=== PATIENT | male | born 1975 | race Caucasian/White ===

== ENCOUNTER 2021-07-12 11:28 | Emergency (ER) | payer MEDICAID, OTHER ==
[~2021-07-12] VITALS: Ht 175 cm; Wt 63.0 kg
--- OUTSIDE RECORDS SUMMARY | 2021-07-12 11:35 | XMS REPORT | Clinical Summary ---
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 If you d o not see the information that you expected, contact Release of Information in [facility] [place] Information Management department at [phone] for further assistan ce in locating additional records.[facility] Allergies Comments Active Allergy Reactions Severity Noted Date Penicillins FEVER Medium 12/03/2020 Medications End Date Status Medication Sig Dispensed Refills Start Date Active HYDROcodone/acetaminophen Take 1 tablet 0 (NORCO) 7.5/325 mg tablet by mouth every 6 hours as needed for Pain Active methIMAzole (TAPAZOLE) 5 Take 5 mg by 0 mg tablet mouth daily. Active Problems No known active problems Surgical History Surgery Date Site/Laterality Comments NASAL SURGERY 09/25/2001 - 09/24/2002 NECK SURGERY SHOULDER SURGERY Medical History Medical History Date Comments Lupus (HCC) Thyroid disease Family History Medical History Relation Name Comments Heart Disease Father Arthritis Mother Heart Disease Mother Relation Name Status Comments Father Mother Social History Date Tobacco Use Types Packs/Day Years Used Current Every Day Smoker Cigarettes 1 15 Smokeless Tobacco: Never Used Comments Alcohol Use Standard Drinks/Week Not Currently 0 (1 standard drink = 0.6 o z pure alcohol) Sex Assigned at Date Recorded Not on file Last Filed Vital Signs Reading Time Taken Comments Vital Sign 128/78 12/03/2020 8:27 AM [employer] Blood Pressure 64 12/03/2020 8:27 AM [employer] Pulse 36.6 C (97.8 F) 12/03/2020 8:27 AM [employer] Temperature 16 12/03/2020 8:27 AM [employer] Respiratory Rate 95% 12/03/2020 8:27 AM [employer] Oxygen Saturation - - Inhaled Oxygen Concentration 87.1 kg (192 lb) 12/03/2020 8:27 AM [employer] Weight 175.3 cm (5' 9") 12/03/2020 8:27 AM [employer] Height 28.35 12/03/2020 8:27 AM [employer] Body Mass Index Plan of Treatment Health Maintenance Due Date Last Done Comments HIV SCREENING 1992 DTAP/TDAP VACCINES (1 - 1995 Tdap) HEPATITIS C SCREENING 1995 PHYSICAL (COMPREHENSIVE) 1995 EXAM INFLUENZA VACCINE 04/25/2021 Results Not on filefrom Last 3 Months Insurance Type Payer Benefit Subscriber ID Effective Phone Address Plan / Dates Group Medicaid [facility] MEDICAID [facility] [id number] 2020[address] [phone] 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
--- NOTE | 2021-07-12 11:41 | ED EENT ---
History of Present Illness General Chief Complaint: Eye Problems Stated Complaint: L EYE RED Source: patient Exam Limitations: no limitations History of Present Illness Date Seen by Provider: Jul 12, 2021 Time Seen by Provider: 11:40 Initial Comments To ER with left eye redness and foreign body sensation sudden onset after his shower last night. He is remodeling his house. He thought he got an eyelash in his eye after his shower but he and his looked and could not see any foreign body. They irrigated the eye but into today he has persistent symptoms. Timing/Duration: abrupt Location: eye (L), other (irrigation) Associated Symptoms: denies symptoms Allergies and Home Medications Allergies Coded Allergies: Penicillins (Verified Allergy, Unknown, 07/12/21) Patient Home Medication List Home Medication List Reviewed: Yes Review of Systems Review of Systems Constitutional: see HPI Eyes: See HPI Ears: No Symptoms Reported Nose: no symptoms reported Mouth: no symptoms reported Throat: no symptoms reported Respiratory: no symptoms reported Cardiovascular: no symptoms reported Musculoskeletal: no symptoms reported Skin: no symptoms reported Physical Exam Vital Signs Vital Signs - First Documented Height, Weight, BMI Height: '" Weight: lbs. oz. kg; BMI Method: General Appearance: WD/WN, no apparent distress Eyes: left eye other (No foreign body seen. The symptom of foreign body sensation improved significantly after application of topical tetracaine. We then did some fluorescein and there was an area of dye uptake to the lateral third of the cornea consistent with an abrasion.); bilateral eye PERRL, bilateral eye EOMI Ears: bilateral ear auricle normal, bilateral ear canal normal, bilateral ear TM normal Neck: non-tender, full range of motion Respiratory: no respiratory distress, no accessory muscle use Neurologic/Psychiatric: alert, normal mood/affect, oriented x 3 Skin: normal color, warm/dry Progress/Results/Core Measures Results/Orders My Orders Orders - HAN PENA APRN Tetracaine 0.5% Ophth Violet Sdv (Tetracai (07/12/21 11:45) Fluorescein Strips (Bhzac-F-Uvmcvj) (07/12/21 11:45) Balanced Salt Irrigation Soln (Bss Irrig (07/12/21 11:45) Vital Signs/I&O 07/12/21 07/12/21 11:37 11:37 Temp 36.2 36.2 Pulse 60 60 Resp 18 18 B/P (MAP) 142/85 142/85 (104) Pulse Ox 97 O2 Delivery Room Air Room Air Departure Impression Primary Impression: Left corneal abrasion Disposition: 01 HOME, SELF-CARE Condition: Stable Departure-Patient Inst. Decision time for Depature: 11:41 Referrals: NO,LOCAL PHYSICIAN (PCP/Family) Primary Care Physician Patient Instructions: Corneal Abrasion (DC) Add. Discharge Instructions: The eyedrops as directed. Follow-up with your doctor within the next week for recheck return to ER for worsening. All discharge instructions reviewed with patient and/or family. Voiced understanding. Scripts Gentamicin Sulfate (Gentamicin Sulfate) 5 Ml Drops 2 DROPS OP Q4H for 3 Days, #1 DROPS Prov: HAN PENA APRN 07/12/21 HAN PENA APRN Jul 12, 2021 11:41
[2021-07-12] MEDS ORDERED: FLUORESCEIN (FLUOR-I-STRIPS) 1 MG STRP OU ONE (11:45)
[2021-07-12] MEDS ORDERED: BSS 15 ML IR ONE (11:45)
[2021-07-12] MEDS ORDERED: TETRACAINE 0.5% OPHTH SOLN 4 ML BTL (SINGLE DOSE ONLY) OU ONE (11:45)
[2021-07-12] MEDS ORDERED: GENT5DRO30 OP (11:52)
[2021-07-12 11:54] VITALS: BP 142/65
== END 2021-07-12 11:54 | disposition home or self-care (01) ==
LOC: ER 11:31
DX: S05.02XA Injury of conjunctiva and corneal abrasion without foreign body, left eye, initial encounter (principal); X58.XXXA Exposure to other specified factors, initial encounter
CPT/HCPCS: 99281

== ENCOUNTER 2021-10-24 19:17 | Emergency (ER) | payer MEDICAID ==
[~2021-10-24] VITALS: Ht 177.8 cm; Wt 72.6 kg
[~2021-10-24 19:17] MED LIST: GENT5DRO30 OP
[2021-10-24 19:23] VITALS: BP 125/77
--- NOTE | 2021-10-24 19:36 | ED General ---
General Chief Complaint: COVID19 Suspect/Confirmed Stated Complaint: FEVER,CHILLS,URENA,BODY ACHES Source of Information: Patient Exam Limitations: No Limitations (HAN PENA APRN) History of Present Illness Date Seen by Provider: Oct 24, 2021 Time Seen by Provider: 19:36 Initial Comments Sudden onset of fever chills headache body aches low back pain sore throat onset this morning no cough. Denies abdominal pain dysuria or bowel changes. Daughter had flu last week. Timing/Duration: 12 Hours Severity: Moderate Associated Systoms: Fever/Chills, Headaches, Loss of Appetite, Nausea/Vomiting, Weakness (HAN PENA APRN) Allergies and Home Medications Allergies Coded Allergies: Penicillins (Verified Allergy, Unknown, 07/12/21) Patient Home Medication List Home Medication List Reviewed: Yes (HAN PENA APRN) Gentamicin Sulfate (Gentamicin Sulfate) 5 Ml Drops, 2 DROPS OP Q4H Prescribed by: HAN PENA on 07/12/21 1152 Review of Systems Review of Systems Constitutional: see HPI, chills, fever, malaise, weakness EENTM: see HPI, throat pain Respiratory: see HPI Cardiovascular: no symptoms reported Genitourinary: no symptoms reported Musculoskeletal: no symptoms reported Skin: no symptoms reported Psychiatric/Neurological: No Symptoms Reported Hematologic/Lymphatic: No Symptoms Reported Immunological/Allergic: no symptoms reported (HAN PENA APRN) Past Pwmkigm-Bhpwco-Hrvthv Hx Patient Social History Tobacco Use?: Yes Tobacco type used: Cigarettes Smoking Status: Current Everyday Smoker Use of E-Cig and/or Vaping dev: No Substance use?: No Alcohol Use?: No (HAN PENA APRN) Immunizations Up To Date Influenza Vaccine Up-to-Date: No; Not Current First/Initial COVID19 Vaccinat: NONE Second COVID19 Vaccination Wilfrid: NONE Third COVID19 Vaccination Date: NONE 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 (HAN PENA APRN) Physical Exam Vital Signs Vital Signs - First Documented 10/24/21 19:23 Temp 38.5 Pulse 80 Resp 20 B/P (MAP) 125/77 (93) O2 Delivery Room Air (DEBBIE MORALES MD) Vital Signs Capillary Refill : (HAN PENA APRN) Height, Weight, BMI Height: '" Weight: lbs. oz. kg; 20.00 BMI Method: General Appearance: No Apparent Distress, WD/WN, Other (He was febrile on arrival given Tylenol and ibuprofen.) Eyes: Bilateral Eye Normal Inspection, Bilateral Eye PERRL, Bilateral Eye EOMI HEENT: PERRL/EOMI, TMs Normal, Pharyngeal Erythema Respiratory: No Accessory Muscle Use, No Respiratory Distress Cardiovascular: Normal Peripheral Pulses, Tachycardia Gastrointestinal: Normal Bowel Sounds, Non Tender, Soft Extremity: Normal Capillary Refill, Normal Inspection Neurologic/Psychiatric: Alert, Oriented x3 Skin: Normal Color, Warm/Dry (HAN PENA APRN) Progress/Results/Core Measures Suspected Sepsis SIRS Temperature: Pulse: Respiratory Rate: Blood Pressure / Mean: (HAN PENA APRN) Results/Orders Lab Results Laboratory Tests Test 10/24/21 19:28 Range/Units Influenza Type A Antigen NEGATIVE NEGATIVE Influenza Type B Antigen NEGATIVE NEGATIVE (DEBBIE MORALES MD) Medications Given in ED Current Medications Medications Dose Ordered Sig/Dianna Route Start Time Stop Time Status Last Admin Dose Admin Acetaminophen 1,000 mg ONCE ONCE PO 10/24/21 19:45 10/24/21 19:46 DC 10/24/21 20:02 1,000 MG Ibuprofen 800 mg ONCE ONCE PO 10/24/21 19:45 10/24/21 19:46 DC 10/24/21 20:02 800 MG (DEBBIE MORALES MD) Vital Signs/I&O 10/24/21 10/24/21 10/24/21 10/24/21 19:23 20:02 20:02 20:16 Temp 38.5 38.5 38.5 38.3 Pulse 80 Resp 20 B/P (MAP) 125/77 (93) O2 Delivery Room Air (DEBBIE MORALES MD) Vital Signs/I&O Capillary Refill : (HAN PENA APRN) Departure Impression Primary Impression: Person under investigation for COVID-19 Additional Impression: Viral syndrome Disposition: 01 HOME, SELF-CARE Condition: Stable Departure-Patient Inst. Decision time for Depature: 20:08 (HAN PENA APRN) Referrals: NO,LOCAL PHYSICIAN (PCP/Family) Primary Care Physician Patient Instructions: VIRAL SYNDROME Add. Discharge Instructions: 1. Tylenol and ibuprofen for fever or body aches. Return to ER for any concerns or worsening symptoms. Follow-up with your doctor later this week. All discharge instructions reviewed with patient and/or family. Voiced understanding. Work/School Note: Work Release Form Date Seen in the Emergency Department: Oct 24, 2021 Return to Work: Oct 28, 2021 ATTENDING PHYSICIAN NOTE: I was physically present as attending physician in the emergency department during the care of this patient, but I was not directly involved in the decision making or delivery of care for this patient. (DEBBIE MORALES MD) HAN PENA APRN Oct 24, 2021 19:36 DEBBIE MORALES MD Oct 25, 2021 04:57
[2021-10-24] MEDS ORDERED: ACETAMINOPHEN 500 MG TAB (TYLENOL) PO ONE (19:45)
[2021-10-24] MEDS ORDERED: IBUPROFEN 800 MG (MOTRIN) TAB PO ONE (19:45)
== END 2021-10-24 20:16 | disposition home or self-care (01) ==
LOC: EDUNIT# 19:17 → ER 19:18
DX: B34.9 Viral infection, unspecified (principal); F17.210 Nicotine dependence, cigarettes, uncomplicated; Z20.822 Contact with and (suspected) exposure to COVID-19
CPT/HCPCS: 87635; 87804; 99283

== ENCOUNTER 2023-03-13 11:21 | Emergency (ER) | payer MEDICAID ==
[~2023-03-13] VITALS: Ht 177.8 cm; Wt 81.6 kg
[~2023-03-13 11:21] MED LIST changes: -GENT5DRO30 OP; +GENT5DRO6 OP
[2023-03-13] MEDS ORDERED: TETRACAINE 0.5% OPHTH SOLN 4 ML BTL (SINGLE DOSE ONLY) ONE (11:28)
[2023-03-13] MEDS ORDERED: FLUORESCEIN (FLUOR-I-STRIPS) 1 MG STRP OP ONE (11:30)
[2023-03-13] MEDS ORDERED: TETRACAINE 0.5% OPHTH SOLN 5 ML BTL OP ONE (11:30)
--- NOTE | 2023-03-13 11:36 | ED EENT ---
History of Present Illness General Chief Complaint: Eye Problems Stated Complaint: RT EYE PAIN | FOREIGN OBJECT Nursing Triage Note: PT AMB TO ED BY POV WITH C/O IRRITATION TO R EYE. PT REPORTS HE FELT A METAL SHAVING GO INTO R EYE WHILE GRINDING METAL LAST NIGHT. PT WAS WEARING SAFETY GLASSES AND FLUSHED EYE AFTER. PT EYE STILL PAINFUL, VISION A LITTLE BLURRY TODAY. Source: patient Exam Limitations: no limitations History of Present Illness Date Seen by Provider: Mar 13, 2023 Time Seen by Provider: 11:34 Initial Comments Is a 47-year-old male who presents ED with right eye discomfort. Patient states he was grinding metal yesterday afternoon/evening. Patient was wearing safety glasses. He felt something fly into his eye. Patient immediately irrigated with water. Continue having discomfort throughout the night and morning. Rates pain 4 out of 10. Patient states his right eye is watery. Reports matted eye this morning. He is up-to-date on his tetanus. Denies fever, chills, contacts, headache, dizziness, nausea, vomiting, loss of vision. Allergies and Home Medications Allergies Coded Allergies: Penicillins (Verified Allergy, Unknown, 07/12/21) Patient Home Medication List Home Medication List Reviewed: Yes Gentamicin Sulfate (Gentamicin Sulfate) 5 Ml Drops, 2 DROPS OP Q4H Prescribed by: HAN PENA on 07/12/21 1152 Polymyxin B Sulf/Trimethoprim (Polytrim Eye Drops) 10,000 Unit-1 Mg/Ml Drops, 1 DROP OP Q4H Prescribed by: JUNIOR POTTER on 03/13/23 1154 Review of Systems Review of Systems Constitutional: No chills Eyes: Denies Blurred Vision, Denies Drainage, Denies Decreased Acuity; Foreign Body Sensation, Inflammation, Pain Ears: Denies Dizziness, Denies Pain Nose: denies clots, denies congestion Mouth: denies clots, denies loose teeth Throat: denies pain, denies swelling Respiratory: No cough, No dyspnea on exertion Cardiovascular: No chest pain Gastrointestinal: No abdominal pain, No diarrhea, No nausea, No vomiting Musculoskeletal: No back pain, No joint pain Skin: No change in color, No change in hair/nails Past Wockgfr-Vfncfy-Xzgzew Hx Immunizations Up To Date First/Initial COVID19 Vaccinat: NONE Second COVID19 Vaccination Wilfrid: NONE Third COVID19 Vaccination Date: NONE Past Medical History Surgery/Hospitalization HX: Nasal recon., right shoulder repair, and neck surgery. Physical Exam Vital Signs Vital Signs - First Documented 03/13/23 11:27 Temp 36.6 Pulse 74 Resp 16 B/P (MAP) 149/102 (118) Pulse Ox 99 O2 Delivery Room Air Height, Weight, BMI Height: '" Weight: lbs. oz. kg; 25.00 BMI Method: General Appearance: WD/WN, no apparent distress Eyes: right eye other (Central foreign body of the cornea. Negative Payam sign. No hyphema. Extract movements intact. Pupils reactive to light. No significant erythematous injection. 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 Anesthetized with tetracaine. Successful removal of 1 foreign body which appears to be a metal shaving. Progress/Results/Core Measures Results/Orders My Orders Orders - JEWEL ALCAZAR Tetracaine 0.5% Ophth Soln (Tetravisc 0. (03/13/23 11:30) Fluorescein Strips (Lwawo-Y-Ckszac) (03/13/23 11:30) Tetracaine 0.5% Ophth Violet Sdv (Tetracai (03/13/23 11:28) Medications Given in ED Current Medications Medications Dose Ordered Sig/Dianna Route Start Time Stop Time Status Last Admin Dose Admin Fluorescein Sodium ONCE ONCE OP 03/13/23 11:30 03/13/23 11:31 DC 03/13/23 11:37 1 MG Tetracaine HCl 4 ml STK-MED ONCE .ROUTE 03/13/23 11:28 03/13/23 11:30 DC 03/13/23 11:37 4 ML Vital Signs/I&O 03/13/23 03/13/23 11:27 12:05 Temp 36.6 36.6 Pulse 74 73 Resp 16 16 B/P (MAP) 149/102 (118) 130/89 Pulse Ox 99 99 O2 Delivery Room Air Room Air Blood Pressure Mean: 118 Departure Communication (PCP) Reviewed previous ER visits, H&P, lab testing. On exam evidence of a central corneal foreign body. Anesthetized with tetracaine. Fluorescein eye strip was used. Appears I Was successfully able to remove most of the foreign body. No rust ring. Small corneal abrasion after near successful removal. Patient tolerated procedure well. Will discharge with Polytrim prophylactically. Recommend following up with optometry in the next 1 to 2 days for reevaluation. Patient has no complaints at discharge. If increasing pain, loss of vision to return back to ED. He is up-to-date on his tetanus. Continue wearing eye care. Patient does not wear contacts. Impression Primary Impression: Foreign body of cornea Disposition: HOME, SELF-CARE Condition: Stable Departure-Patient Inst. Decision time for Depature: 11:53 Referrals: ZOHAIB JAMIL OD NO,LOCAL PHYSICIAN (PCP) Primary Care Physician Patient Instructions: Corneal Abrasion (DC) Add. Discharge Instructions: Recommend following up with [facility] across the [address] from [facility] in the next 1 to 2 days for further evaluation. All discharge instructions reviewed with patient and/or family. Voiced understanding. Scripts Polymyxin B Sulf/Trimethoprim (Polytrim Eye Drops) 10,000 Unit-1 Mg/Ml Drops 1 DROP OP Q4H for 7 Days, #1 EA Prov: JEWEL ALCAZAR 03/13/23 JEWEL ALCAZAR Mar 13, 2023 11:36
[2023-03-13] MEDS ORDERED: POLY10DR OP (11:54)
[2023-03-13 12:05] VITALS: BP 130/89
== END 2023-03-13 12:05 | disposition home or self-care (01) ==
LOC: EDUNIT# 11:21 → ER 11:22
DX: T15.01XA Foreign body in cornea, right eye, initial encounter (principal); Z28.310 Unvaccinated for COVID-19; Z88.0 Allergy status to penicillin
CPT/HCPCS: 65222